=== PATIENT | female | born 1955 | race Caucasian/White ===

== ENCOUNTER 2019-05-03 23:57 | Inpatient (IN) ==
[2019-05-04 01:05] LABS: Basophils # 0.1 K/mcL (0.0-0.2); Basophils % 0.5 %; Eosinophils # 0.2 K/mcL (0.0-0.6); Eosinophils % 1.2 %; Hematocrit 36.7 % (35.3-44.9); Hemoglobin 12.2 g/dL (11.5-15.4); Immature Granulocytes % 0.8 % (0-4); Lymphocytes # 1.2 K/mcL (0.6-4.6); Lymphocytes % 7.5 %; Mean Corpuscular HGB Conc 33.2 g/dL (31.6-35.5); Mean Corpuscular Hemoglobin 29.5 pg (28.0-33.3); Mean Corpuscular Volume 88.9 fL (83.0-100.0); Mean Platelet Volume 9.5 fL (9.4-12.4); Monocytes # 0.6 K/mcL (0.0-1.3); Monocytes % 4.1 %; Neutrophils # 13.3 K/mcL (1.6-8.9); Platelet Count 374 K/mcL (140-400); Red Blood Count 4.13 M/mcL (3.82-4.97); Red Cell Distribution Width 13.2 % (11.5-14.5); Segmented Neutrophils % 85.9 %; White Blood Count 15.5 K/mcL (4.3-11.1)
[2019-05-04 01:56] LABS: Alanine Aminotransferase 18 Units/L (7-52); Albumin 4.5 g/dL (3.5-5.7); Albumin/Globulin Ratio 1.7 (1.1-2.2); Alkaline Phosphatase 84 Units/L (34-104); Aspartate Amino Transferase 15 Units/L (13-39); BUN/Creatinine Ratio 15 (6-26); Bilirubin,Direct 0.1 mg/dL (0.0-0.2); Bilirubin,Indirect 0.5 mg/dL (0.0-1.0); Bilirubin,Total 0.6 mg/dL (0.3-1.0); Blood Urea Nitrogen 14 mg/dL (8-23); Calcium 9.6 mg/dL (8.6-10.3); Carbon Dioxide 29 mEq/L (23-29); Chloride 101 mEq/L (98-107); Globulin 2.7 g/dL (2.4-3.5); Glucose 145 mg/dL (70-105); Osmolality,Calculated 291 (280-300); Potassium 3.5 mEq/L (3.5-5.1); Sodium 139 mEq/L (136-145); Total Protein 7.2 g/dL (6.4-8.9); eGFR For African Americans > 60 (> 60); eGFR For Non-African Americans > 60 (> 60)
[2019-05-04] MEDS ORDERED: Nitroglycerin 0.4 MG TAB.SUBL SL PRN (02:27)
[2019-05-04] MEDS ORDERED: Naloxone 0.4 MG/ML INJ IVP PRN (02:27)
[2019-05-04] MEDS ORDERED: Furosemide 40 MG/4 ML VIAL IVP ONE ×2 (02:29)
[2019-05-04] MEDS ORDERED: *HR* FentaNYL (PF) 100 MCG/2 ML VIAL IVP ONE ×3 (02:29→04:15)
[2019-05-04] MEDS: *HR* Enoxaparin 40 MG/0.4 ML SYRINGE SQ SCH (06:55)
[2019-05-04] MEDS: tiZANidine 4 MG TABLET PO SCH ×4 (08:35→23:21)
[2019-05-04] MEDS: *HR* OxyCODONE/APAP 5/325 TABLET PO PRN (08:35)
[2019-05-04] MEDS: Gabapentin 300 MG CAPSULE PO SCH ×2 (08:35→23:20)
[2019-05-04] MEDS: Lisinopril 20 MG TABLET PO SCH (08:35)
[2019-05-04] MEDS: Furosemide 40 MG TABLET PO SCH (08:36)
[2019-05-04] MEDS: Ondansetron ODT 4 MG TAB.RAPDIS PO SCH ×3 (08:36→23:20)
[2019-05-04] MEDS ORDERED: Losartan/HCTZ 50-12.5 TABLET PO SCH (09:00)
[2019-05-04] MEDS: Cefepime HCl 2,000 MG in 0.9 % Sodium Chloride Mini Bag 100 ML IVPB SCH (13:24)
[2019-05-04] MEDS ORDERED: 0.9 % Sodium Chloride 500 ML IVC ONE (16:02)
[2019-05-04] MEDS: 0.9 % Sodium Chloride 1,000 ML IVC SCH (17:31)
[2019-05-04] MEDS: SUVOREXANT 20 MG PO SCH (23:20)
[2019-05-05] MEDS: Cefepime HCl 2,000 MG in 0.9 % Sodium Chloride Mini Bag 100 ML IVPB SCH ×2 (01:55→14:14)
[2019-05-05 05:27] LABS: Hematocrit 31.9 % (35.3-44.9); Hemoglobin 10.4 g/dL (11.5-15.4); Mean Corpuscular HGB Conc 32.6 g/dL (31.6-35.5); Mean Corpuscular Hemoglobin 29.7 pg (28.0-33.3); Mean Corpuscular Volume 91.1 fL (83.0-100.0); Mean Platelet Volume 9.4 fL (9.4-12.4); Platelet Count 274 K/mcL (140-400); Red Cell Distribution Width 13.8 % (11.5-14.5); White Blood Count 9.6 K/mcL (4.3-11.1)
[2019-05-05 05:55] LABS: Albumin 3.4 g/dL (3.5-5.7); Albumin/Globulin Ratio 1.5 (1.1-2.2); Bilirubin,Total 0.6 mg/dL (0.3-1.0); Calcium 8.1 mg/dL (8.6-10.3); Globulin 2.2 g/dL (2.4-3.5); Potassium 3.3 mEq/L (3.5-5.1); Total Protein 5.6 g/dL (6.4-8.9)
[2019-05-05] MEDS: 0.9 % Sodium Chloride 1,000 ML IVC SCH ×3 (06:16→22:42)
[2019-05-05] MEDS: *HR* Enoxaparin 40 MG/0.4 ML SYRINGE SQ SCH (06:16)
[2019-05-05] MEDS ORDERED: Aminoglycoside Consult 1 EACH MC ONE (08:18)
[2019-05-05] MEDS: Gabapentin 300 MG CAPSULE PO SCH ×2 (09:48→20:28)
[2019-05-05] MEDS: Furosemide 40 MG TABLET PO SCH (09:48)
[2019-05-05] MEDS: Lisinopril 20 MG TABLET PO SCH (09:49)
[2019-05-05] MEDS: tiZANidine 4 MG TABLET PO SCH ×4 (09:49→20:28)
[2019-05-05] MEDS: Ondansetron ODT 4 MG TAB.RAPDIS PO SCH ×2 (09:57→20:28)
[2019-05-05] MEDS: *HR* OxyCODONE/APAP 5/325 TABLET PO PRN ×2 (09:57→16:17)
[2019-05-05] MEDS ORDERED: 0.9 % Sodium Chloride 500 ML IV ONE (10:55)
[2019-05-05] MEDS: Magnesium Oxide 400 MG TABLET PO SCH (12:29)
[2019-05-05] MEDS: Doxycycline 100 MG in 0.9 % Sodium Chloride Mini Bag 100 ML IVPB SCH (17:15)
[2019-05-05] MEDS: SUVOREXANT 20 MG PO SCH (20:29)
[2019-05-06] MEDS: *HR* OxyCODONE/APAP 5/325 TABLET PO PRN ×4 (00:35→23:41)
[2019-05-06] MEDS: Cefepime HCl 2,000 MG in 0.9 % Sodium Chloride Mini Bag 100 ML IVPB SCH (00:35)
[2019-05-06] MEDS: Melatonin 3 MG TABLET PO PRN ×2 (00:53→23:42)
[2019-05-06 05:34] LABS: Hematocrit 30.7 % (35.3-44.9); Hemoglobin 9.8 g/dL (11.5-15.4); Mean Corpuscular HGB Conc 31.9 g/dL (31.6-35.5); Mean Corpuscular Hemoglobin 29.5 pg (28.0-33.3); Mean Corpuscular Volume 92.5 fL (83.0-100.0); Mean Platelet Volume 9.4 fL (9.4-12.4); Platelet Count 270 K/mcL (140-400); Red Blood Count 3.32 M/mcL (3.82-4.97); Red Cell Distribution Width 13.5 % (11.5-14.5); White Blood Count 7.9 K/mcL (4.3-11.1)
[2019-05-06] MEDS: Doxycycline 100 MG in 0.9 % Sodium Chloride Mini Bag 100 ML IVPB SCH ×2 (05:43→17:30)
[2019-05-06] MEDS: 0.9 % Sodium Chloride 1,000 ML IVC SCH ×5 (05:50→23:51)
[2019-05-06] MEDS: *HR* Enoxaparin 40 MG/0.4 ML SYRINGE SQ SCH (05:51)
[2019-05-06 05:52] LABS: Albumin 3.3 g/dL (3.5-5.7); Albumin/Globulin Ratio 1.5 (1.1-2.2); Bilirubin,Total 0.2 mg/dL (0.3-1.0); Calcium 8.2 mg/dL (8.6-10.3); Globulin 2.2 g/dL (2.4-3.5); Magnesium 1.8 mg/dL (1.6-2.6); Potassium 3.7 mEq/L (3.5-5.1); Total Protein 5.5 g/dL (6.4-8.9)
[2019-05-06] MEDS: Gabapentin 300 MG CAPSULE PO SCH ×2 (09:47→20:51)
[2019-05-06] MEDS: Ondansetron ODT 4 MG TAB.RAPDIS PO SCH ×2 (09:47→20:51)
[2019-05-06] MEDS: Magnesium Oxide 400 MG TABLET PO SCH (09:48)
[2019-05-06] MEDS: tiZANidine 4 MG TABLET PO SCH (09:48)
[2019-05-06] MEDS: Lisinopril 20 MG TABLET PO SCH (19:55)
[2019-05-06] MEDS: SUVOREXANT 20 MG PO SCH (21:38)
[2019-05-06] MEDS ORDERED: Cefepime HCl 2,000 MG in 0.9 % Sodium Chloride Mini Bag 100 ML IVPB SCH (23:00)
[2019-05-07] MEDS: Doxycycline 100 MG in 0.9 % Sodium Chloride Mini Bag 100 ML IVPB SCH (06:13)
[2019-05-07] MEDS: *HR* Enoxaparin 40 MG/0.4 ML SYRINGE SQ SCH (06:14)
[2019-05-07] MEDS: *HR* OxyCODONE/APAP 5/325 TABLET PO PRN (06:20)
[2019-05-07 06:50] LABS: Basophils # 0.1 K/mcL (0.0-0.2); Basophils % 0.8 %; Eosinophils # 0.6 K/mcL (0.0-0.6); Hematocrit 34.9 % (35.3-44.9); Hemoglobin 10.9 g/dL (11.5-15.4); Immature Granulocytes % 0.6 % (0-4); Lymphocytes % 19.6 %; Mean Corpuscular HGB Conc 31.2 g/dL (31.6-35.5); Mean Corpuscular Hemoglobin 29.6 pg (28.0-33.3); Mean Corpuscular Volume 94.8 fL (83.0-100.0); Mean Platelet Volume 9.5 fL (9.4-12.4); Monocytes # 0.6 K/mcL (0.0-1.3); Monocytes % 6.1 %; Platelet Count 344 K/mcL (140-400); Red Blood Count 3.68 M/mcL (3.82-4.97); Red Cell Distribution Width 13.6 % (11.5-14.5); Segmented Neutrophils % 66.9 %; White Blood Count 10.4 K/mcL (4.3-11.1)
[2019-05-07 07:06] VITALS: BP 158/87
[2019-05-07 07:13] LABS: Potassium 4.1 mEq/L (3.5-5.1)
[2019-05-07] MEDS: Ondansetron ODT 4 MG TAB.RAPDIS PO SCH (09:28)
[2019-05-07] MEDS: Magnesium Oxide 400 MG TABLET PO SCH (09:29)
[2019-05-07] MEDS: Gabapentin 300 MG CAPSULE PO SCH (09:29)
== END 2019-05-07 10:24 | disposition home or self-care (01) | DRG 603 ==
LOC: EMEROOGRE 23:57 → INPGRE 23:57
PROVIDERS: ADMIT Internal Medicine; ATTEND Family Medicine